=== PATIENT | female | born 1955 ===

== ENCOUNTER 2024-11-08 09:11 | Observation (INO) ==
[2024-11-08] MEDS ORDERED: IOPAMIDOL 100 ML BOTTLE IV ONE (09:12)
[2024-11-08 10:10] LABS: Basophils # (Auto) 0 K/mcL (0.00-0.30); Basophils % (Auto) 0 % (0.0-2.0); Eosinophils # (Auto) 0 K/mcL (0.00-0.70); Eosinophils % (Auto) 0 % (0.0-7.0); Hematocrit 43.6 % (34.1-44.9); Hemoglobin 14.9 g/dL (11.2-15.7); Lymphocytes # (Auto) 0.93 K/mcL (1.50-4.80); Lymphocytes % (Auto) 3.8 % (15.5-49.0); Mean Corpuscular HGB Conc 34.2 g/dL (31.0-36.0); Monocytes # (Auto) 1.91 K/mcL (0.10-0.90); Monocytes % (Auto) 7.9 % (1.0-12.0); Neutrophils % (Auto) 87.7 % (38.0-78.0); Platelet Count 358 K/mcL (140-440); RBC 4.81 M/mcL (3.59-5.38); WBC 24.3 K/mcL (4.5-11.0)
[2024-11-08 10:31] LABS: ALT/SGPT 24 U/L (<40); AST/SGOT 30 U/L (<32); Albumin 3.6 gm/dL (3.2-5.2); Albumin/Globulin Ratio 1.3 (1.0-2.3); Alkaline Phosphatase 150 U/L (39-117); Anion Gap 14.0 (8.0-16.0); Bilirubin,Total 0.3 mg/dL (0.1-1.0); Blood Urea Nitrogen 37 mg/dL (8-23); Calcium 9.3 mg/dL (8.6-10.4); Carbon Dioxide 21 mmol/L (22-30); Chloride 95 mmol/L (96-108); Globulin 2.8 gm/dL (2.2-3.7); Glucose 140 mg/dL (70-105); Potassium 3.7 mmol/L (3.3-5.1); Sodium 130 mmol/L (133-145)
[2024-11-08] MEDS: PIPERACILLIN SODIUM/TAZOBACTAM 4.5 GM in DEXTROSE 5% IN WATER 50 ML IV ONE (11:10)
[2024-11-08 13:51] LABS: Bilirubin,Urine Negative (Negative); Color,Urine Yellow; Glucose,Urine (UA) Negative (Negative); Ketones,Urine Negative (Negative); Leukocyte Esterase,Urine Negative /uL (Negative); PH,Urine 5.5 (5.0-9.0); Protein,Urine 30 mg/dL (Negative); Specific Gravity,Urine 1.010 (1.000-1.035); Urobilinogen,Urine Normal
[2024-11-08] MEDS: fentaNYL 100 MCG/2 ML VIAL IV PRN (14:46)
[2024-11-08] MEDS: FLEETS ADULT 1 DOSE ENEMA PR SCH (18:04)
[2024-11-08] MEDS: FLEETS ADULT 1 DOSE ENEMA ONE (18:11)
[2024-11-08] MEDS: POLYETHYLENE GLYCOL 3350 17 GM PACKET PO SCH (19:25)
[2024-11-08] MEDS: 0.9 % SODIUM CHLORIDE 1,000 ML IV SCH (19:32)
[2024-11-08] MEDS: PYRIDOSTIGMINE BROMIDE 10 MG/2 ML AMPUL IV SCH (19:32)
[2024-11-09] MEDS: ONDANSETRON 4 MG/2 ML VIAL IV PRN (05:45)
[2024-11-09 06:06] LABS: Basophils # (Auto) 0.01 K/mcL (0.00-0.30); Basophils % (Auto) 0.1 % (0.0-2.0); Eosinophils # (Auto) 0 K/mcL (0.00-0.70); Eosinophils % (Auto) 0 % (0.0-7.0); Hematocrit 39.6 % (34.1-44.9); Hemoglobin 13.8 g/dL (11.2-15.7); Lymphocytes # (Auto) 0.78 K/mcL (1.50-4.80); Lymphocytes % (Auto) 4.2 % (15.5-49.0); Mean Corpuscular HGB Conc 34.8 g/dL (31.0-36.0); Monocytes # (Auto) 1.59 K/mcL (0.10-0.90); Monocytes % (Auto) 8.5 % (1.0-12.0); Neutrophils % (Auto) 86.9 % (38.0-78.0); Platelet Count 356 K/mcL (140-440); RBC 4.40 M/mcL (3.59-5.38); WBC 18.8 K/mcL (4.5-11.0)
[2024-11-09 06:27] LABS: ALT/SGPT 24 U/L (<40); AST/SGOT 26 U/L (<32); Albumin 3.2 gm/dL (3.2-5.2); Albumin/Globulin Ratio 1.4 (1.0-2.3); Alkaline Phosphatase 124 U/L (39-117); Anion Gap 13.0 (8.0-16.0); Bilirubin,Direct < 0.2 mg/dL (0-0.3); Bilirubin,Total 0.3 mg/dL (0.1-1.0); Blood Urea Nitrogen 35 mg/dL (8-23); Calcium 7.7 mg/dL (8.6-10.4); Carbon Dioxide 18 mmol/L (22-30); Chloride 98 mmol/L (96-108); Globulin 2.3 gm/dL (2.2-3.7); Glucose 110 mg/dL (70-105); Phosphorous 3.1 mg/dL (2.5-4.5); Potassium 3.1 mmol/L (3.3-5.1); Sodium 129 mmol/L (133-145); Triglycerides 139 mg/dL (<150); Uric Acid 2.5 mg/dL (2.5-8.0)
[2024-11-09] MEDS: CITALOPRAM 20 MG TABLET PO SCH (08:50)
[2024-11-09] MEDS ORDERED: POLYETHYLENE GLYCOL 3350 17 GM PACKET PO SCH (09:00)
[2024-11-09] MEDS: POTASSIUM CHLORIDE 40 MEQ in DEXTROSE 5% IN WATER 500 ML IV SCH (15:50)
[2024-11-10 06:15] LABS: Basophils # (Auto) 0.01 K/mcL (0.00-0.30); Basophils % (Auto) 0.1 % (0.0-2.0); Eosinophils # (Auto) 0.10 K/mcL (0.00-0.70); Eosinophils % (Auto) 0.7 % (0.0-7.0); Hematocrit 36.6 % (34.1-44.9); Hemoglobin 12.6 g/dL (11.2-15.7); Lymphocytes # (Auto) 1.11 K/mcL (1.50-4.80); Lymphocytes % (Auto) 8.2 % (15.5-49.0); Mean Corpuscular HGB Conc 34.4 g/dL (31.0-36.0); Monocytes # (Auto) 0.89 K/mcL (0.10-0.90); Monocytes % (Auto) 6.6 % (1.0-12.0); Neutrophils % (Auto) 82.9 % (38.0-78.0); Platelet Count 297 K/mcL (140-440); RBC 4.03 M/mcL (3.59-5.38); WBC 13.6 K/mcL (4.5-11.0)
[2024-11-10 06:37] LABS: ALT/SGPT 45 U/L (<40); AST/SGOT 47 U/L (<32); Albumin 2.8 gm/dL (3.2-5.2); Albumin/Globulin Ratio 1.3 (1.0-2.3); Alkaline Phosphatase 90 U/L (39-117); Anion Gap 9.0 (8.0-16.0); Bilirubin,Direct < 0.2 mg/dL (0-0.3); Bilirubin,Total 0.2 mg/dL (0.1-1.0); Blood Urea Nitrogen 11 mg/dL (8-23); Calcium 6.7 mg/dL (8.6-10.4); Carbon Dioxide 17 mmol/L (22-30); Chloride 106 mmol/L (96-108); Globulin 2.1 gm/dL (2.2-3.7); Glucose 92 mg/dL (70-105); Phosphorous 1.0 mg/dL (2.5-4.5); Potassium 3.6 mmol/L (3.3-5.1); Sodium 132 mmol/L (133-145); Triglycerides 154 mg/dL (<150); Uric Acid 2.1 mg/dL (2.5-8.0)
[2024-11-10 08:51] LABS: Basophils # (Auto) 0.01 K/mcL (0.00-0.30); Basophils % (Auto) 0.1 % (0.0-2.0); Eosinophils # (Auto) 0.08 K/mcL (0.00-0.70); Eosinophils % (Auto) 0.6 % (0.0-7.0); Hematocrit 35.4 % (34.1-44.9); Hemoglobin 12.1 g/dL (11.2-15.7); Lymphocytes # (Auto) 0.82 K/mcL (1.50-4.80); Lymphocytes % (Auto) 6.6 % (15.5-49.0); Mean Corpuscular HGB Conc 34.2 g/dL (31.0-36.0); Monocytes # (Auto) 0.66 K/mcL (0.10-0.90); Monocytes % (Auto) 5.3 % (1.0-12.0); Neutrophils % (Auto) 85.7 % (38.0-78.0); Platelet Count 293 K/mcL (140-440); RBC 3.91 M/mcL (3.59-5.38); WBC 12.5 K/mcL (4.5-11.0)
[2024-11-10 09:17] LABS: ALT/SGPT 43 U/L (<40); AST/SGOT 43 U/L (<32); Albumin 2.8 gm/dL (3.2-5.2); Albumin/Globulin Ratio 1.3 (1.0-2.3); Alkaline Phosphatase 127 U/L (39-117); Anion Gap 9.0 (8.0-16.0); Bilirubin,Direct < 0.2 mg/dL (0-0.3); Bilirubin,Total 0.3 mg/dL (0.1-1.0); Blood Urea Nitrogen 9 mg/dL (8-23); Calcium 5.2 mg/dL (8.6-10.4); Carbon Dioxide 17 mmol/L (22-30); Chloride 106 mmol/L (96-108); Globulin 2.2 gm/dL (2.2-3.7); Glucose 175 mg/dL (70-105); Phosphorous 0.9 mg/dL (2.5-4.5); Potassium 3.0 mmol/L (3.3-5.1); Sodium 132 mmol/L (133-145); Triglycerides 146 mg/dL (<150); Uric Acid 2.1 mg/dL (2.5-8.0)
[2024-11-10] MEDS: CALCIUM GLUCONATE 4.65 MEQ/10 ML VIAL IV ONE (14:42)
[2024-11-10] MEDS: CALCIUM GLUCONATE 9.3 MEQ in DEXTROSE 5% IN WATER 100 ML IV SCH (15:03)
[2024-11-10] MEDS: POTASSIUM PHOSPHATE 40 MEQ in DEXTROSE 5% IN WATER 500 ML IV SCH (15:04)
[2024-11-11] MEDS: POTASSIUM PHOSPHATE 40 MEQ in DEXTROSE 5% IN WATER 500 ML IV ONE (07:35)
[2024-11-11 15:09] LABS: ALT/SGPT 85 U/L (<40); AST/SGOT 68 U/L (<32); Albumin 2.9 gm/dL (3.2-5.2); Albumin/Globulin Ratio 1.4 (1.0-2.3); Alkaline Phosphatase 77 U/L (39-117); Anion Gap 11.0 (8.0-16.0); Bilirubin,Direct < 0.2 mg/dL (0-0.3); Bilirubin,Total 0.2 mg/dL (0.1-1.0); Blood Urea Nitrogen 4 mg/dL (8-23); Calcium 7.3 mg/dL (8.6-10.4); Carbon Dioxide 18 mmol/L (22-30); Chloride 106 mmol/L (96-108); Globulin 2.1 gm/dL (2.2-3.7); Glucose 105 mg/dL (70-105); Phosphorous 2.1 mg/dL (2.5-4.5); Potassium 3.2 mmol/L (3.3-5.1); Sodium 135 mmol/L (133-145); Triglycerides 130 mg/dL (<150); Uric Acid 1.7 mg/dL (2.5-8.0)
== END 2024-11-11 16:35 | disposition home or self-care (01) ==
LOC: MEDSUR 09:11 → ED 09:11 → MEDSUR 13:14
PROVIDERS: ADMIT Family Medicine Adult Medicine; ATTEND Family Medicine Adult Medicine